=== PATIENT | female | born 1985 | race Caucasian/White ===

== ENCOUNTER 2020-12-07 03:19 | Inpatient (IN) ==
[2020-12-07] MEDS ORDERED: miSOPROStoL 50 MCG TAB PO ONE ×2 (04:08→10:31)
[2020-12-07] MEDS ORDERED: OXYTOCIN 30 UNITS/500 ML BAG IV PRN ×3 (04:08→20:20)
[2020-12-07] MEDS ORDERED: PENICILLIN G POTASSIUM 6 MU in DEXTROSE 5% 250 ML IV STA (04:08)
[2020-12-07] MEDS: LACTATED RINGER'S 1,000 ML IV PRN ×3 (04:27→15:18)
[2020-12-07 04:59] LABS: Hematocrit (blood only) 35.4 % (37-47); Hemoglobin 12.5 g/dL (12.0-16.0); Mean Corpuscular Hemoglobin 31.8 pg (25-34); Mean Corpuscular Hgb Conc 35.3 g/dL (32-36); Mean Corpuscular Volume 90.1 fL (80-100); Mean Platelet Volume 9.5 fL (7.4-10.4); Platelet Count 257 K/uL (130-400); RDW Coefficient of Variation 13.1 % (11.5-14.5); RDW Standard Deviation 43.1 fL (36.4-46.3); Red Blood Count 3.93 M/uL (4.2-5.4); White Blood Count 9.15 K/uL (4.8-10.8)
[2020-12-07] MEDS: PENICILLIN G POTASSIUM 3 MU in DEXTROSE 5% 100 ML IV PRN ×3 (08:28→17:23)
[2020-12-07] MEDS ORDERED: CALCIUM CARBONATE 500 MG CHEWABLE TAB ONE (08:38)
[2020-12-07] MEDS ORDERED: BUTORPHANOL TARTRATE 1 MG/ML VIAL IV PRN (12:02)
[2020-12-07] MEDS ORDERED: BUTORPHANOL TARTRATE 1 MG/ML VIAL ONE (12:05)
[2020-12-07] MEDS ORDERED: SODIUM CHLORIDE 0.9% INJ 10 ML VIAL ONE (12:58)
[2020-12-07] MEDS ORDERED: fentaNYL citrate 100 MCG/2 ML VIAL ONE (12:58)
[2020-12-07] MEDS ORDERED: BUPIVACAINE 0.25% 30 ML VIAL ONE (12:58)
[2020-12-07] MEDS ORDERED: fentaNYL 2MCG/ML ROPIVACAINE 1.25MG/ML 100 ML BAG EPI ONE (12:58)
[2020-12-07] MEDS ORDERED: ePHEDrine sulfate 50 MG/ML AMP ONE (12:58)
[2020-12-07] MEDS ORDERED: ONDANSETRON INJ 2 MG/ML 2 ML VIAL IV PRN (13:17)
[2020-12-07] MEDS ORDERED: NALOXONE HCL 1 MG in SODIUM CHLORIDE 0.9% 1000ML 1,000 ML IV PRN (13:17)
[2020-12-07] MEDS ORDERED: ePHEDrine sulfate 50 MG/ML AMP IV PRN (13:17)
[2020-12-07] MEDS ORDERED: NALOXONE HCL 0.4 MG/1 ML VIAL/CARP IV PRN (13:17)
[2020-12-07] MEDS ORDERED: diphenhydrAMINE 50 MG/ML VIAL IV PRN (13:17)
[2020-12-07] MEDS ORDERED: fentaNYL 2MCG/ML ROPIVACAINE 1.25MG/ML 100 ML BAG EPI PRN (13:17)
--- NOTE | 2020-12-07 13:18 | Anesthesiology Consultation ---
Date of Service December 07, 2020 Assessment & Plan (1) Encounter for pre-operative examination: Chart Review Chart Review: Patient NOT seen in Pre Admission Testing and Acceptable Risk for Labor Epidural Consults Requested none History Height/Weight Height: 5 ft 10 in Weight: 100.698 kg Allergies Allergy/AdvReac Type Severity Reaction Status Date / Time No Known Drug Allergies Allergy . Verified 12/07/20 04:20 Medications Home Medications Medication Instructions Recorded Confirmed Last Taken docusate sodium [Colace] 100 mg PO ONCE 12/07/20 12/07/20 12/06/20 loratadine [Claritin] 10 mg PO DAILY 12/07/20 12/07/20 12/07/20 vit [id number] 1 tab PO DAILY 12/07/20 12/07/20 12/06/20 [ Vitamin] valacyclovir [Valtrex] 500 mg PO BID 12/07/20 12/07/20 12/07/20 Active Medications Generic Name Dose Route Start Last Admin Trade Name Freq PRN Reason Stop Dose Admin Lactated Ringer's 1,000 mls @ 125 mls/hr 12/07/20 04:08 12/07/20 13:06 Lr IV 12/09/20 04:07 999 mls/hr .Q8H PRN Administration L&D Protocol Protocol Penicillin G Potassium 3 mu/ 106 mls @ 100 mls/hr 12/07/20 04:16 12/07/20 13:05 Dextrose IV 12/21/20 04:15 100 mls/hr Q4H PRN Administration Give until delivery Past Medical History Medical History Hypertension Patient reports has resolved. Last had 5 years ago. Exercise / Class Metabolic Activity II 4-5 Yardwork/Stairs/Walk up hill Past Surgical History Surgical History [place] teeth removed Past Anesthesia History No Hx of Anesthesia Complications and No Family Hx of Anesthesia Complications History of PONV No Hx of PONV and No Hx of Motion Sickness Social History Smoking Status: Never smoker Hx Alcohol Use: No Hx Substance Use: No substance use type: does not use Physical Exam Vital Signs Last Vital Signs Temp 36.7 C 12/07/20 13:00 Pulse 100 H 12/07/20 13:34 Resp 18 12/07/20 13:00 BP 147/93 H 12/07/20 13:34 Pulse Ox 86 L 12/07/20 13:33 Testing Laboratory Results 12/07/20 04:42
[2020-12-07] MEDS: CALCIUM CARBONATE 500 MG CHEWABLE TAB PO PRN ×2 (19:01→23:38)
[2020-12-07] MEDS ORDERED: oxyCODONE/ACETAMINOPHEN 5mg/325mg TAB PO PRN (20:20)
[2020-12-07] MEDS ORDERED: BENZOCAINE 20% AER SPR 82.5 GM CAN EXT PRN (20:20)
[2020-12-07] MEDS ORDERED: HYDROCORTISONE ACETATE 25 MG SUPP PR PRN (20:20)
[2020-12-07] MEDS ORDERED: ACETAMINOPHEN 325 MG TAB PO PRN (20:20)
[2020-12-07] MEDS ORDERED: SUPERCREAM 0.870% 15 GM JAR EXT PRN (20:20)
[2020-12-07] MEDS ORDERED: DIPHTHERIA/TETANUS/PERTUSSIS 0.5 ML SYR/VIAL IM ONE (20:20)
[2020-12-07] MEDS ORDERED: bisacodyL 10 MG SUPP PR PRN (20:20)
[2020-12-07] MEDS ORDERED: ACETAMINOPHEN W/CODEINE #3 1 TAB PO PRN (20:20)
--- NOTE | 2020-12-07 20:34 | Anesthesia Procedure Note ---
Date of Service December 07, 2020 Anesthesia Post Epidural Note Vital Signs Vital Signs: Temp Pulse Resp BP Pulse Ox 36.7 C 98 H 18 118/72 95 12/07/20 19:07 12/07/20 20:32 12/07/20 20:01 12/07/20 20:32 12/07/20 20:12 Pain Intensity Bilateral Abdomen: Pain Intensity: 0 Notes Mental Status: alert / awake / arousable and participated in evaluation Patient Amnestic to Procedure: No Nausea / Vomiting: adequately controlled Pain: adequately controlled Airway Patency, RR, SpO2: stable & adequate BP & HR: stable & adequate Hydration State: stable & adequate Neuraxial Anesthesia: was administered and sensory block is resolving Anesthetic Complications: no major complications apparent and Pt Satisfied with anesthetic care Epidural: Removed without complications and With tip intact
[2020-12-07] MEDS: DOCUSATE SODIUM 100 MG CAP PO SCH (21:47)
[2020-12-07] MEDS: IBUPROFEN 600 MG TAB PO PRN (22:38)
--- NOTE | 2020-12-07 23:14 | Delivery Summary ---
DATE OF OPERATION: 12/07/2020 DELIVERY NOTE She is 1, para 1. Blood type is A positive. Group B strep had been done, but result was unavailable at the time, so she was treated with IV penicillin. Her due date is 12/28/2020, she is 37 weeks. She had rupture of membranes. She was admitted to the hospital and rupture of membranes was confirmed. She then was given p.o. Cytotec and about 6 hours later another dose of p.o. Cytotec and then eventually she was started on IV Pitocin, given about 2 days dose of Stadol, then an epidural, she has got good pain relief. The Pitocin was gradually upped. She went to full dilatation, delivered a live female via direct occiput anterior position over an intact perineum. was suctioned through the mouth and the nose. Body was delivered without difficulty. Cord was clamped, cut by the father after it had been allowed to pulse for 1 minute, then cord blood was taken. With IV Pitocin running, the placenta was removed intact. Inspection of the perineum revealed bilateral periurethral lacerations and a very superficial first-degree perineal laceration. The bilateral periurethral lacerations were sewn with a running 3-0 chromic and then the perineal laceration was sewn with a running 2-0 Vicryl. Following this, the catheter was placed in the bladder and some urine was drained to ensure patency of the urethra. Estimated blood loss was 100 mL. The patient tolerated the procedure well. I attest to the content of the Intraoperative Record and any orders documented therein. Any exception s are noted below.
[2020-12-08] MEDS: IBUPROFEN 600 MG TAB PO PRN ×3 (05:13→20:23)
[2020-12-08 06:19] LABS: Hemoglobin 11.9 g/dL (12.0-16.0); Mean Corpuscular Hemoglobin 32.5 pg (25-34); Mean Corpuscular Volume 92.9 fL (80-100); Mean Platelet Volume 9.9 fL (7.4-10.4); Platelet Count 247 K/uL (130-400); RDW Coefficient of Variation 13.4 % (11.5-14.5); RDW Standard Deviation 45.3 fL (36.4-46.3); Red Blood Count 3.66 M/uL (4.2-5.4)
[2020-12-08] MEDS: PRENATAL VITAMIN 1 TAB PO SCH (07:51)
[2020-12-08] MEDS: DOCUSATE SODIUM 100 MG CAP PO SCH ×2 (07:51→20:23)
--- NOTE | 2020-12-08 09:05 | Obstetrical Progress Note ---
Date of Service December 08, 2020 Assessment & Plan Admission and Anticipated Discharge Date Admission Date: December 07, 2020 Physical Exam Physical Exam: abdomen soft and non tender no calf tenderness ambulating well vaginal bleeding scant hgb 11.4 Results & Data ([facility]) Vital Signs (Past 12 Hours) Vital Signs Temp Pulse Pulse Resp BP BP Pulse Ox 12/08/20 07:46 36.3 C L 71 18 111/72 96 12/08/20 04:30 36.6 C 76 18 117/78 12/07/20 23:30 36.7 C 84 18 126/82 12/07/20 22:16 84 128/75 12/07/20 22:15 36.7 C 18 12/07/20 22:01 96 H 126/75 12/07/20 21:47 95 H 133/78 12/07/20 21:45 18 12/07/20 21:32 100 H 140/73 12/07/20 21:17 89 137/72 12/07/20 21:15 18
[2020-12-08] MEDS ORDERED: bisacodyL 5 MG TABEC PO SCH (20:00)
[2020-12-09] MEDS: IBUPROFEN 600 MG TAB PO PRN (05:34)
[2020-12-09 07:35] LABS: Hematocrit (blood only) 36.2 % (37-47); Hemoglobin 12.4 g/dL (12.0-16.0)
[2020-12-09] MEDS: DOCUSATE SODIUM 100 MG CAP PO SCH (08:01)
[2020-12-09] MEDS: PRENATAL VITAMIN 1 TAB PO SCH (08:02)
--- NOTE | 2020-12-09 08:22 | Obstetrical Progress Note ---
Date of Service December 09, 2020 Assessment & Plan Admission and Anticipated Discharge Date Admission Date: December 07, 2020 Physical Exam Physical Exam: abdomen soft and non tender no calf tenderness ambulating well vaginal bleeding scant hgb 12.4 Results & Data ([facility]) Vital Signs (Past 12 Hours) Vital Signs Temp Pulse Resp BP Pulse Ox 12/09/20 07:53 36.7 C 72 20 127/80 97 12/08/20 22:47 36.7 C 82 16 136/88 97
== END 2020-12-09 13:20 | disposition home or self-care (01) | DRG 807 ==
LOC: OPB 03:19 → 4S1 03:23 → 4S2 22:45